=== PATIENT | female | born 1955 | race Caucasian/White ===

== ENCOUNTER 2021-02-22 11:59 | Observation (INO) | payer OTHER ==
[2021-02-22 12:56] LABS: Basophils % 1.2 % (0-1.3); Hematocrit 43.3 % (36.0-45.0); RBC Red Blood Cell Count 5.07 M/uL (3.86-4.86)
[2021-02-22 13:00] LABS: Protime INR 1.03
[2021-02-22] MEDS ORDERED: MORPHINE 2 MG/ML SYR ONE (13:07)
[2021-02-22] MEDS ORDERED: ASPIRIN 81 MG CHEWABLE TABLET ONE (13:07)
[2021-02-22] MEDS ORDERED: HYDRALAZINE HCL 10 MG TABLET ONE (13:07)
[2021-02-22] MEDS ORDERED: FAMOTIDINE 20 MG/2 ML VIAL IV ONE (13:08)
[2021-02-22] MEDS ORDERED: ONDANSETRON 4 MG/2 ML VIAL ONE (13:08)
[2021-02-22] MEDS ORDERED: HYDRALAZINE HCL 20 MG/ML VIAL ONE (13:08)
[2021-02-22 13:10] LABS: Urine Blood Trace-intact (Negative); Urine Glucose Negative (Negative); Urine Protein Negative (Negative); Urine Specific Gravity 1.025 (1.005-1.030); Urine pH 6.5 (5.0-7.0)
[2021-02-22 13:18] LABS: ALT/SGPT 34 U/L (12-78); AST/SGOT 23 U/L (15-37); Albumin 3.6 g/dL (3.4-5.0); Alkaline Phosphatase 72 U/L (45-117); BUN Blood Urea Nitrogen 10 mg/dL (7-18); Bicarbonate 29 mmol/L (21-32); Bilirubin Direct 0.1 mg/dL (0-0.2); Bilirubin Total 0.6 mg/dL (0.2-1.0); Glucose Level 103 mg/dL (74-106); Lipase 107 U/L (73-393); NT PRO-BNP 173 pg/mL (<125); Potassium 3.8 mmol/L (3.5-5.1); Protein, Total 7.8 g/dL (6.4-8.2); Sodium Level 138 mmol/L (136-145); Troponin (Emerg Dept Use Only) < 0.02 ng/mL (0.0-0.045)
--- NOTE | 2021-02-22 13:57 | EDPHYS ---
Physician Documentation [facility] Name: Jillian Ramirez Age: 65 yrs Sex: Female : 1955 Arrival Date: 02/22/2021 Time: 12:01 Bed 17 Private MD: [facility] ED Physician Clarence Montoya HPI: 02/22 12:39 This 65 yrs old Female presents to ER via Ambulatory with complaints of Chest nguyễn Pain, Arm Pain, Shortness Of Breath. 12:39 The patient or guardian reports chest pain that is located primarily in the substernal nguyễn area, epigastric area. Onset: 2 day(s) ago. The pain radiates to Associated signs and symptoms: Pertinent positives: lightheadedness, shortness of breath. The chest pain is described as a pressure. Duration: The patient or guardian reports multiple episodes. Severity of pain: At its worst the pain was moderate in the emergency department the pain is unchanged. The patient has not experienced similar symptoms in the past. Historical: - Allergies: 12:09 No Known Allergies; aa5 - PMHx: 12:09 Hypertension; Hypothyroidism; aa5 - Immunization history:: Client reports receiving the 2nd dose of the Covid vaccine, Flu vaccine is up to date. - Social history:: Smoking status: Patient/guardian denies using tobacco. ROS: 12:40 Constitutional: Negative for fever, chills, and weight loss, Eyes: Negative for injury, nguyễn pain, redness, and discharge, ENT: Negative for injury, pain, and discharge, Neck: Negative for injury, pain, and swelling, Respiratory: Negative for shortness of breath, cough, wheezing, and pleuritic chest pain, Abdomen/GI: Negative for abdominal pain, nausea, vomiting, diarrhea, and constipation, Back: Negative for injury and pain, : Negative for injury, bleeding, discharge, and swelling, MS/Extremity: Negative for injury and deformity, Skin: Negative for injury, rash, and discoloration, Neuro: Negative for headache, weakness, numbness, tingling, and seizure, Psych: Negative for depression, anxiety, suicide ideation, homicidal ideation, and hallucinations, Allergy/Immunology: Negative for hives, rash, and allergies, Endocrine: Negative for neck swelling, polydipsia, polyuria, polyphagia, and marked weight changes, Hematologic/Lymphatic: Negative for swollen nodes, abnormal bleeding, and unusual bruising. 12:40 Cardiovascular: Positive for chest pain, palpitations. Exam: 12:40 Constitutional: This is a well developed, well nourished patient who is awake, alert, nguyễn and in no acute distress. Head/Face: Normocephalic, atraumatic. Eyes: Pupils equal round and reactive to light, extra-ocular motions intact. Lids and lashes normal. Conjunctiva and sclera are non-icteric and not injected. Cornea within normal limits. Periorbital areas with no swelling, redness, or edema. ENT: Nares patent. No nasal discharge, no septal abnormalities noted. Tympanic membranes are normal and external auditory canals are clear. Oropharynx with no redness, swelling, or masses, exudates, or evidence of obstruction, uvula midline. Mucous membranes moist. Neck: Trachea midline, no thyromegaly or masses palpated, and no cervical lymphadenopathy. Supple, full range of motion without nuchal rigidity, or vertebral point tenderness. No Meningismus. Chest/axilla: Normal chest wall appearance and motion. Nontender with no deformity. No lesions are appreciated. Cardiovascular: Regular rate and rhythm with a normal S1 and S2. No gallops, murmurs, or rubs. Normal PMI, no JVD. No pulse deficits. Respiratory: Lungs have equal breath sounds bilaterally, clear to auscultation and percussion. No rales, rhonchi or wheezes noted. No increased work of breathing, no retractions or nasal flaring. Abdomen/GI: Soft, non-tender, with normal bowel sounds. No distension or tympany. No guarding or rebound. No evidence of tenderness throughout. Back: No spinal tenderness. No costovertebral tenderness. Full range of motion. Skin: Warm, dry with normal turgor. Normal color with no rashes, no lesions, and no evidence of cellulitis. MS/ Extremity: Pulses equal, no cyanosis. Neurovascular intact. Full, normal range of motion. Neuro: Awake and alert, GCS 15, oriented to person, place, time, and situation. Cranial nerves II-XII grossly intact. Motor strength 5/5 in all extremities. Sensory grossly intact. Cerebellar exam normal. Normal gait. Psych: Awake, alert, with orientation to person, place and time. Behavior, mood, and affect are within normal limits. 12:40 Musculoskeletal/extremity: DVT Exam: No signs of deep vein thrombosis. no pain, no swelling, no tenderness, negative Homans' sign noted on exam, no appreciated bluish discoloration, no erythema, no increased warmth. 12:44 ECG was reviewed by the Attending Physician. nguyễn Vital Signs: 12:04 BP 225 / 92; Pulse 61; Resp 18; Temp 98.0(O); Pulse Ox 98% on R/A; Weight 114.31 kg aa5 (R); Height 5 ft. 3 in. (160.02 cm) (R); Pain 3/10; 13:06 BP 181 / 79; Pulse 66; Resp 16; Pulse Ox 98% on R/A; zb 14:30 BP 175 / 74; Pulse 71; Resp 20; Pulse Ox 97% on R/A; zb 15:35 BP 164 / 108; Pulse 56; Resp 16; Pulse Ox 97% on R/A; zb 16:45 BP 157 / 109; Pulse 51; Resp 16; Pulse Ox 98% on R/A; zb 12:04 Body Mass Index 44.64 (114.31 kg, 160.02 cm) aa5 MDM: 12:13 Patient medically screened. [facility] 12:42 Differential diagnosis: abnormal EKG, acute myocardial infarction, coronary artery nguyễn disease chest wall pain, congestive heart failure hiatal hernia, pancreatitis, peptic ulcer disease, pneumonia, pulmonary embolus, stable angina, unstable angina. HEART Score: History: Moderately Suspicious (1), ECG: Non specific repolarization disturbance / LBTB / PM (1), Age: > 45 and < 65 years (1), Risk Factors: > or = 3 Risk factors for atherosclerotic disease (2), [Hypercholesterolemia] [Hypertension] [+ Family HX] [Obesity] Troponin: < or = 1 x Normal Limit (0). The patient was given aspirin in the Emergency Department. The patient's deep vein thrombosis risk score was calculated as follows: Total Score: 0. This patient was found to be at low risk for a deep vein thrombosis by using the Well's assessment criteria. The patient's pulmonary embolism risk score was calculated as follows: Total Score: 0-2 points. This patient was found to be at low risk for a pulmonary embolism by using the Well's assessment criteria. MIROSLAVA Risk Score: 1 - Three or more CAD risk factors, TOTAL SCORE = 1. Data reviewed: vital signs, nurses notes, lab test result(s), EKG, radiologic studies, plain films. Data interpreted: case monitor: rate is 61 beats/min, rhythm is regular, Pulse oximetry: on. Test interpretation: by ED physician or midlevel provider: ECG, plain radiologic studies. Counseling: I had a detailed discussion with the patient and/or guardian regarding: the historical points, exam findings, and any diagnostic results supporting the discharge/admit diagnosis, lab results, radiology results, the need for further work-up and treatment in the hospital. 02/22 12:17 Order name: Basic Metabolic Panel; Complete Time: 13:48 [facility] 02/22 12:17 Order name: CBC with Diff; Complete Time: 13:48 [facility] 02/22 12:17 Order name: LFT's; Complete Time: 13:48 [facility] 02/22 12:17 Order name: Magnesium; Complete Time: 13:48 [facility] 02/22 12:17 Order name: NT PRO-BNP; Complete Time: 13:48 [facility] 02/22 12:17 Order name: PT-INR; Complete Time: 13:48 nguyễn 02/22 12:17 Order name: Troponin (emerg Dept Use Only); Complete Time: 13:48 [facility] 02/22 12:17 Order name: XRAY Chest (1 view); Complete Time: 14:34 [facility] 02/22 12:17 Order name: TSH; Complete Time: 13:48 [facility] 02/22 12:17 Order name: Lipase; Complete Time: 13:48 [facility] 02/22 12:17 Order name: Urine Culture 02/22 13:10 Order name: Urine Dipstick-Ancillary; Complete Time: 13:48 [facility] 02/22 14:02 Order name: SARS-COV-2 RT PCR; Complete Time: 14:34 [facility] 02/22 12:17 Order name: EKG; Complete Time: 12:18 [facility] 02/22 12:17 Order name: Cardiac monitoring; Complete Time: 13:06 [facility] 02/22 12:17 Order name: EKG - Nurse/Tech; Complete Time: 13:06 nguyễn 02/22 12:17 Order name: IV Saline Lock; Complete Time: 13:06 nguyễn 02/22 12:17 Order name: Labs collected and sent; Complete Time: 13:06 [facility] 02/22 12:17 Order name: CT Aorta for Dissection; Complete Time: 14:34 [facility] 02/22 14:40 Order name: CONS Physician Consult [facility] 02/22 12:17 Order name: O2 Per Protocol; Complete Time: 13:06 [facility] 02/22 12:17 Order name: O2 Sat Monitoring; Complete Time: 13:14 [facility] 02/22 12:17 Order name: Urine Dipstick-Ancillary (obtain specimen); Complete Time: 13:06 [facility] EC:44 Rate is 60 beats/min. Rhythm is regular. QRS [place] is Normal. [place] interval is normal. QRS nguyễn interval is normal. QT interval is normal. No Q waves. T waves are Normal. ST Segment is depressed in leads I, aVL, V5, V6. Clinical impression: NSR w/ Non-specific ST/T Changes and No evidence of ischemia. Interpreted by me. Reviewed by me. Administered Medications: 13:03 Drug: HydrALAZINE 25 mg Route: PO; zb 14:00 Follow up: Response: No adverse reaction; Marked relief of symptoms; Blood pressure is zb elevated 13:04 Drug: hydrALAZINE 10 mg Route: IV; Rate: per protocol; Site: right antecubital; zb 15:01 Follow up: Response: No adverse reaction; Blood pressure is lowered; IV Status: zb Completed infusion; IV Intake: 0.5ml 13:05 Drug: Pepcid (famotidine) 20 mg Route: IVP; Site: right antecubital; zb 14:00 Follow up: Response: No adverse reaction zb 13:05 Drug: morphine 2 mg {Note: RASS 0.} Route: IVP; Site: right antecubital; zb 14:00 Follow up: Response: No adverse reaction; No change in condition; Pain is decreased; zb RASS: Alert and Calm (0) 13:05 Drug: Zofran (Ondansetron) 4 mg Route: IVP; Site: right antecubital; zb 14:00 Follow up: Response: No adverse reaction; Marked relief of symptoms zb 13:05 Drug: Aspirin Chewable Tablet 162 mg Route: PO; zb 14:00 Follow up: Response: No adverse reaction zb 14:50 Drug: Lovenox (enoxaparin) 100 mg Route: Sub-Q; Site: right lower abdomen; zb 15:03 Follow up: Response: No adverse reaction zb 14:51 Drug: Lopressor (metoprolol TARTRATE) 50 mg Route: PO; zb 15:34 Follow up: Response: No adverse reaction; Blood pressure is lowered zb 16:52 Drug: Tylenol 1000 mg Route: PO; zb 17:00 Follow up: Response: No adverse reaction zb Disposition: 02/22/21 13:57 Hospitalization ordered by Guillermo Byrd for Observation. Preliminary diagnosis are Chest pain, unspecified, Essential (primary) hypertension, Obesity, unspecified, Dyspnea. - Bed requested for Telemetry/MedSurg (observation). - Status is Observation. zb - Condition is Fair. - Problem is new. - Symptoms have improved. Signatures: Dispatcher [employer] [facility] Clarence Montoya MD MD cha Calderon, Audri, RN RN aa5 Tyrone Madison RN RN ja1 Cecilia Partida RN RN zb Corrections: (The following items were deleted from the chart) 13:19 12:39 CORONAVIRUS+MR.LAB.BRZ ordered. [facility] 15:32 13:57 Hospitalization Ordered by Guillermo Byrd MD for Observation. Preliminary ja1 diagnosis is Chest pain, unspecified; Essential (primary) hypertension; Obesity, unspecified; Dyspnea. Bed requested for Telemetry/MedSurg (observation). Status is Observation. Condition is Fair. Problem is new. Symptoms have improved. [facility] 17:15 15:32 02/22/2021 13:57 Hospitalization Ordered by Guillermo Byrd MD for Observation. zb Preliminary diagnosis is Chest pain, unspecified; Essential (primary) hypertension; Obesity, unspecified; Dyspnea. Bed requested for Telemetry/MedSurg (observation). Status is Observation. Condition is Fair. Problem is new. Symptoms have improved. ja1
--- NOTE | 2021-02-22 13:57 | ER ---
Nurse's Notes [facility] Name: Jillian Ramirez Age: 65 yrs Sex: Female : 1955 Arrival Date: 02/22/2021 Time: 12:01 Bed 17 Private MD: Elroy Valentine Diagnosis: Chest pain, unspecified;Essential (primary) hypertension;Obesity, unspecified;Dyspnea Presentation: 02/22 12:04 Chief complaint: Patient states: Chest pain for the past 2 weeks that is intermittent, aa5 and shortness of breath for the same amount of time that has gotten progressively worse. 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 Coronavirus screen: Client denies travel out of the [place] in the last 14 days. At this time, the client does not indicate any symptoms associated with coronavirus-19. Ebola Screen: Patient denies travel to an Ebola-affected area in the 21 days before illness onset. Initial Sepsis Screen: Does the patient meet any 2 criteria? No. Patient's initial sepsis screen is negative. Does the patient have a suspected source of infection? No. Patient's initial sepsis screen is negative. Risk Assessment: Do you want to hurt yourself or someone else? Patient reports no desire to harm self or others. Onset of symptoms was 2020. 12:04 Method Of Arrival: Ambulatory aa5 12:04 Acuity: JOSSELIN 2 aa5 Triage Assessment: 12:09 General: Appears in no apparent distress. uncomfortable, Behavior is calm, cooperative, aa5 appropriate for age. Pain: Complains of pain in chest Pain currently is 3 out of 10 on a pain scale. Neuro: Level of Consciousness is awake, alert, obeys commands. Cardiovascular: Patient's skin is warm and dry. Respiratory: Airway is patent Respiratory effort is even, unlabored, Respiratory pattern is regular, symmetrical. Historical: - Allergies: 12:09 No Known Allergies; aa5 - PMHx: 12:09 Hypertension; Hypothyroidism; aa5 - Immunization history:: Client reports receiving the 2nd dose of the Covid vaccine, Flu vaccine is up to date. - Social history:: Smoking status: Patient/guardian denies using tobacco. Screenin:13 Abuse screen: Denies threats or abuse. Denies injuries from another. Nutritional zb screening: No deficits noted. Tuberculosis screening: No symptoms or risk factors identified. Fall Risk None identified. Assessment: 12:40 General: Appears in no apparent distress. comfortable, Behavior is calm, cooperative, zb appropriate for age. Pain: Complains of pain in left arm and chest Pain radiates to left arm Pain currently is 2 out of 10 on a pain scale. Pain began a "couple of days". Neuro: Level of Consciousness is awake, alert, obeys commands, Oriented to person, place, time, situation. Cardiovascular: Heart tones S1 S2 Capillary refill < 3 seconds in bilateral fingers Patient's skin is warm and dry. Cardiovascular: Reports chest pain, Denies fatigue, lightheadedness, shortness of breath, Heart tones Rhythm is regular. Respiratory: Airway is patent Respiratory effort is even, unlabored, Respiratory pattern is regular, symmetrical. GI: Derm: Skin is intact, is healthy with good turgor, Skin is dry, Skin is normal, Skin temperature is warm. Musculoskeletal: Circulation, motion, and sensation intact. Range of motion: intact in all extremities. 13:20 Reassessment: Patient appears in no apparent distress at this time. Patient and/or zb family updated on plan of care and expected duration. Pain level reassessed. Patient is alert, oriented x 3, equal unlabored respirations, skin warm/dry/pink. patient resting at bedside no changes at this time. family has arrived for support. 14:00 Reassessment: Patient appears in no apparent distress at this time. Patient and/or zb family updated on plan of care and expected duration. Pain level reassessed. Patient is alert, oriented x 3, equal unlabored respirations, skin warm/dry/pink. hospitalist at bedside discussing care with patient and family. 14:52 Reassessment: plaster machine tender at bedside discussing care with patient. zb 15:36 Reassessment: Patient appears in no apparent distress at this time. Patient and/or zb family updated on plan of care and expected duration. Pain level reassessed. Patient is alert, oriented x 3, equal unlabored respirations, skin warm/dry/pink. no changes at this time. family remains at bedside. patient heart rate in high 50's to 60's. patient asymptomatic. 15:40 Reassessment: unable to give report at this time. zb 16:57 Reassessment: Patient appears in no apparent distress at this time. Patient and/or zb family updated on plan of care and expected duration. Pain level reassessed. Patient is alert, oriented x 3, equal unlabored respirations, skin warm/dry/pink. pt c/o of headache rated 8/10. she also stated she wanted to eat some food. heart rate slightly bradycardic notified ECP. Medication ordered for headache. will continue to monitor. Vital Signs: 12:04 BP 225 / 92; Pulse 61; Resp 18; Temp 98.0(O); Pulse Ox 98% on R/A; Weight 114.31 kg aa5 (R); Height 5 ft. 3 in. (160.02 cm) (R); Pain 3/10; 13:06 BP 181 / 79; Pulse 66; Resp 16; Pulse Ox 98% on R/A; zb 14:30 BP 175 / 74; Pulse 71; Resp 20; Pulse Ox 97% on R/A; zb 15:35 BP 164 / 108; Pulse 56; Resp 16; Pulse Ox 97% on R/A; zb 16:45 BP 157 / 109; Pulse 51; Resp 16; Pulse Ox 98% on R/A; zb 12:04 Body Mass Index 44.64 (114.31 kg, 160.02 cm) aa5 ED Course: 12:01 Patient arrived in ED. as 12:02 Elroy Valentine DO is Private Physician. as 12:09 Triage completed. aa5 12:09 Arm band placed on Patient placed in an exam room. aa5 12:11 Cecilia Partida RN is Primary Nurse. zb 12:13 Clarence Montoya MD is Attending Physician. [facility] 12:54 XRAY Chest (1 view) In Process Unspecified. EDMS 13:13 No provider procedures requiring assistance completed. Inserted saline lock: 20 gauge zb in right antecubital area, using aseptic technique. Blood collected. Patient maintains SpO2 saturation greater than 95% on room air. 13:14 Patient has correct armband on for positive identification. Bed in low position. Call zb light in reach. Side rails up X 1. shelter monitor on. Pulse ox on. NIBP on. Door closed. Noise minimized. Warm blanket given. 13:39 CT Aorta for Dissection In Process Unspecified. EDMS 13:52 Guillermo Byrd MD is Hospitalizing Provider. nguyễn 16:59 Patient admitted, IV remains in place. zb Administered Medications: 13:03 Drug: HydrALAZINE 25 mg Route: PO; zb 14:00 Follow up: Response: No adverse reaction; Marked relief of symptoms; Blood pressure is zb elevated 13:04 Drug: hydrALAZINE 10 mg Route: IV; Rate: per protocol; Site: right antecubital; zb 15:01 Follow up: Response: No adverse reaction; Blood pressure is lowered; IV Status: zb Completed infusion; IV Intake: 0.5ml 13:05 Drug: Pepcid (famotidine) 20 mg Route: IVP; Site: right antecubital; zb 14:00 Follow up: Response: No adverse reaction zb 13:05 Drug: morphine 2 mg {Note: RASS 0.} Route: IVP; Site: right antecubital; zb 14:00 Follow up: Response: No adverse reaction; No change in condition; Pain is decreased; zb RASS: Alert and Calm (0) 13:05 Drug: Zofran (Ondansetron) 4 mg Route: IVP; Site: right antecubital; zb 14:00 Follow up: Response: No adverse reaction; Marked relief of symptoms zb 13:05 Drug: Aspirin Chewable Tablet 162 mg Route: PO; zb 14:00 Follow up: Response: No adverse reaction zb 14:50 Drug: Lovenox (enoxaparin) 100 mg Route: Sub-Q; Site: right lower abdomen; zb 15:03 Follow up: Response: No adverse reaction zb 14:51 Drug: Lopressor (metoprolol TARTRATE) 50 mg Route: PO; zb 15:34 Follow up: Response: No adverse reaction; Blood pressure is lowered zb 16:52 Drug: Tylenol 1000 mg Route: PO; zb 17:00 Follow up: Response: No adverse reaction zb Intake: 15:01 IV: 1ml; Total: 1ml. zb Outcome: 13:57 Decision to Hospitalize by Provider. nguyễn 16:59 Admitted to Med/surg accompanied by tech, via wheelchair, room 230, with chart, Report zb called to LITO ROBLEDO 16:59 Condition: stable 16:59 Instructed on the need for admit, Demonstrated understanding of instructions. 17:15 Patient left the ED. zb Signatures: Dispatcher [employer] EDClarence Hester MD MD cha Martinez, Amelia as Calderon, Audri RN RN aaCecilia Noyola RN RN zb Corrections: (The following items were deleted from the chart) 15:39 15:35 BP 164 / 108; Pulse 52bpm; Resp 16bpm; Pulse Ox 97% RA; zb zb 15:39 15:36 Reassessment: Patient appears in no apparent distress at this time. Patient zb and/or family updated on plan of care and expected duration. Pain level reassessed. Patient is alert, oriented x 3, equal unlabored respirations, skin warm/dry/pink. no changes at this time. family remains at bedside. patient heart slightly bradycardic. notified ECP, patient asymptomatic. zb
--- NOTE | 2021-02-22 14:02 | RAD REPORT ---
EXAM DESCRIPTION: Alex Single View02/22/2021 12:54 pm CLINICAL HISTORY: Chest pain COMPARISON: none FINDINGS: The lungs appear clear of acute infiltrate. The heart is normal size IMPRESSION: No acute abnormalities displayed
--- NOTE | 2021-02-22 14:02 | RAD REPORT ---
EXAM DESCRIPTION: CT - Angio Aorta For Dissection - 02/22/2021 1:38 pm CLINICAL HISTORY: . Chest and abdominal pain COMPARISON: None TECHNIQUE: Computed tomography angiography of the chest, abdomen pelvis were obtained. 100 cc Isovue 370 was administered intravenously. Coronal and sagittal reconstruction were performed. MIP 3D reconstruction was performed All CT scans are performed using dose optimization technique as appropriate and may include automated exposure control or mA/KV adjustment according to patient size. FINDINGS: An aortic dissection is not seen. An aortic aneurysm is not displayed. The celiac, SMA and JIMMY are patent . A lung consolidation is not present. A pericardial effusion is not seen. A pleural effusion is not n oted. Fatty liver. Bilateral renal calculi. No hydronephrosis. The spleen, pancreas and adrenals appear unremarkable No evidence of diverticulitis. Fluid in a few loops borderline dilated small bowel IMPRESSION: Negative for an aortic dissection. Fluid in a few borderline dilated loops of small bowel may indicate an enteritis
--- NOTE | 2021-02-22 14:46 | P.HP ---
Certification for Inpatient Patient admitted to: Observation With expected LOS: <2 Midnights Practitioner: I am a practitioner with admitting privileges, knowledge of patient current condition, hospital course, and medical plan of care. Services: Services provided to patient in accordance with Admission requirements found in Title 42 Section 412.3 of the Code of Federal Regulations Patient History Date of Service: 02/22/21 Reason for admission: Chest pain, Hypertensive urgency History of Present Illness: 65yo F PMH: Hypothyroid, HTN, morbid obesity Presents to ED due to severe substernal chest pain/tightness, associated with b/l arm pains, blurry vision. She reports her blood pressure was 220/114. Episode lasted ~4-5 hours - resolved in the ER. She reports having controlled HTN until the last few days. She has been taking her medications as prescribed. She has been experience a "stomach knot" (pointing to epigastrium) over the last month. She was seen by PCP and then GI yesterday in the office. She reports GI told her this is unlikely to be her stomach and may be due to her heart and recommended further cardiac workup. She reports both parents have HTN, mother had [place] and underwent CABG in her 60s. In the ED, labs were rather unremarkable, EKG without ischemia, troponin negative. CXR: without acute process. CT chest/abd/pelvis: negative for aortic dissection, fluid in a few borderline dilated loops of small bowel may indicate an enteritis. BP on arrival: 225/92, HR: 61. Received 25mg Hydralazine PO, 10mg IV Hydralazine, pepcid, morphine, aspirin. BP improved to 181/79 - Past Medical/Surgical History Diabetic: No -: HTN -: Hypothyroid -: Hysterectomy - Family History Mother -: Heart disease - Social History Smoking Status: Never smoker Alcohol use: No CD- Drugs: No Place of Residence: Home Review of Systems 10-point ROS is otherwise unremarkable Physical Examination - Physical Exam General: Alert, Oriented x3, Mild distress HEENT: Mucous membr. moist/pink, Sclerae nonicteric Respiratory: Clear to auscultation bilaterally, Other (appears somewhat labored breathing ) Cardiovascular: No edema, Regular rate/rhythm, Normal S1 S2, No murmurs Capillary refill: <2 Seconds Gastrointestinal: Soft and benign, Non-distended, Tenderness (mild in epigas trium) Musculoskeletal: No contractures, No tenderness Integumentary: No rashes, No breakdown Neurological: Normal speech, Normal strength at 5/5 x4 extr, Cranial nerves 3-12 intact, Normal affect - Studies Laboratory Data (last 24 hrs) 02/22/21 12:41: PT 11.8, INR 1.03 02/22/21 12:41: WBC 6.40, Hgb 14.1, Hct 43.3, Plt Count 203 02/22/21 12:41: Sodium 138, Potassium 3.8, BUN 10, Creatinine 0.92, Glucose 103, Magnesium 2.0, Total Bilirubin 0.6, AST 23, ALT 34, Alkaline Phosphatase 72, Lipase 107 Assessment and Plan - Advance Directives Does patient have a Living Will: No Does patient have a Durable POA for Healthcare: No Physician Review Additional Text: Problem List Chest Pain Hypertensive Urgency, h/o HTN Hypothyroidism Morbid Obesity -initial trop neg, will trend -pt with risk factors for cardiac etiology -cardiology consulted -aspiring, BB, statin, lovenox -CT negative for thoracic process, possible enteritis seen may explain pts epigastric discomfort -obtain home medications - she does not recall which exactly 2 medications she is on -start lisinopril, restart/uptitrate home meds, IV hydralazine PRN, do not want to lower BP too much/fast -hypertensive symptoms have resolved -check thyroid studies VTE: lovenox Code: full Dispo: anticipate dc home in 24-48hrs Time Spent Managing Pts Care (In Minutes): 60
[2021-02-22] MEDS ORDERED: ENOXAPARIN 100 MG/ML SYR SQ ONE (15:06)
[2021-02-22] MEDS ORDERED: METOPROLOL TAR 50 MG TAB ONE (15:06)
[2021-02-22] MEDS ORDERED: lisinopriL 20 MG TAB PO ONE (15:46)
[2021-02-22] MEDS ORDERED: ACETAMINOPHEN 500 MG TAB ONE (17:10)
[2021-02-22 17:59] VITALS: BMI 43.9
[2021-02-22] MEDS ORDERED: ACETAMINOPHEN 500 MG TAB PO PRN (18:07)
[2021-02-22] MEDS ORDERED: HYDRALAZINE HCL 20 MG/ML VIAL IV PRN (18:07)
[2021-02-22] MEDS: METOPROLOL TAR 25 MG TAB PO SCH (18:07)
[2021-02-22] MEDS ORDERED: ONDANSETRON 4 MG/2 ML VIAL IV PRN (18:07)
[2021-02-22 20:04] LABS: Troponin I < 0.02 ng/mL (0.0-0.045)
--- NOTE | 2021-02-22 20:23 | CON ---
Date of Consultation: 02/22/2021 Reason For Consultation: Chest pain. History Of Present Illness: The 65-year-old female, obese, history of hypertension. She had a very high blood pressure earlier this morning at 226 systolic and started having chest pain. It is sterna l that goes to the jaw. Patient has known history of hypertension. No other cardiac issue. No exer tional chest pain. Past Medical History: Hypertension. Medications: Refer to reconciliation sheet for detailed list. Allergies: NO KNOWN DRUG ALLERGIES. Family History: No mention of coronary artery disease or cancer. Social History: She does not smoke or drink. Does not use any drugs. Review of Systems: All systems reviewed and they were negative except for what is mentioned in HPI. Physical Examination: Vital Signs: Reviewed. Head and Neck: Pupils are equal, reactive to light. Intact eye movements. No JVD. No cervical lym phadenopathy. Neck supple. Thyroid is not enlarged. Lungs: Clear to auscultation bilaterally. No rhonchi, rales, or crackles. No accessory muscle use. Heart: Regular rate and rhythm. No extra sounds. Abdomen: Soft, nontender. Bowel sounds positive. No organomegaly. No masses or hernia. No rigidi ty or rebound. Extremities: No edema, clubbing, cyanosis. Intact pulses. Skin: No rashes. Neurologic: Alert, awake, oriented x3. No focal deficits appreciated. Investigations: EKG without acute specific abnormalities. Troponin less than 0.02. Creatinine 0.92 . Hemoglobin is 14.1. Assessment And Recommendation: Chest pain with a very high blood pressure. CT ruled out dissection. Recommend observation, serial sets of cardiac enzymes, and if she remains chest pain free, she can be worked up as an outpatient with a stress test and an echo. Thank you for the consult. /BRADLEY Voice ID: [id number] Report ID: [id number]
[2021-02-22] MEDS ORDERED: ATORVASTATIN 20 MG TAB PO SCH (21:00)
[2021-02-22 22:56] LABS: Urine Appearance CLEAR (Clear); Urine Bilirubin NEGATIVE (Negataive); Urine Blood NEGATIVE (Negative); Urine Color YELLOW (Yellow); Urine Glucose NEGATIVE (Negative); Urine Protein NEGATIVE (Negative); Urine Specific Gravity >=1.030 (1.005-1.030)
[2021-02-22 23:06] LABS: Urine Microscopic Reflex NO UMIC
[2021-02-23] MEDS: METOPROLOL TAR 25 MG TAB PO SCH (05:59)
[2021-02-23 06:55] LABS: Absolute Lymphocytes (CBC) 1.6 K/uL (0.7-4.9); Basophils % 1.2 % (0-1.3); Hematocrit 41.6 % (36.0-45.0); Lymphocytes % 31.1 % (15.3-44.8); MPV 7.9 fL (7.6-11.3); RBC Red Blood Cell Count 4.84 M/uL (3.86-4.86)
[2021-02-23 06:59] LABS: Albumin 3.3 g/dL (3.4-5.0); Bilirubin Total 0.6 mg/dL (0.2-1.0)
[2021-02-23] MEDS ORDERED: LEVOTHYROXINE SOD 0.1 MG TAB PO SCH (07:30)
[2021-02-23] MEDS ORDERED: PANTOPRAZOLE 40MG TABLET PO SCH (07:30)
[2021-02-23] MEDS ORDERED: carvediloL 6.25 MG TAB PO SCH (08:00)
[2021-02-23] MEDS ORDERED: lisinopriL 20 MG TAB PO SCH ×2 (09:00)
[2021-02-23] MEDS ORDERED: SERTRALINE HCL 50 MG TAB PO SCH (09:00)
[2021-02-23] MEDS ORDERED: HOME MED 1 EA UNK (Pravastatin [Pravachol*] 40 MG/TAB Tab) PO SCH (09:00)
[2021-02-23] MEDS ORDERED: ENOXAPARIN 40 MG/0.4 ML SQ SCH (09:00)
[2021-02-23] MEDS ORDERED: HOME MED 1 EA UNK (Omeprazole [Prilosec] 40 MG Capsule.Dr) PO SCH (09:00)
[2021-02-23] MEDS ORDERED: ASPIRIN EC 81 MG TAB PO SCH (09:00)
[2021-02-23 09:41] VITALS: O2SAT 96
[2021-02-23] MEDS ORDERED: METRONIDAZOLE 500mg IVPB 500 MG/100 ML BAG IV SCH (10:00)
[2021-02-23] MEDS ORDERED: CIPROFLOXACIN 400mg IV 400 MG/200 ML BAG IV SCH (10:00)
[2021-02-23] MEDS: SUCRALFATE 1GM/10ML UCUP PO SCH ×2 (12:42)
[2021-02-23] MEDS ORDERED: PNEUMOCOCCAL VACCINE 0.5 ML IMVAC ONE (14:00)
--- NOTE | 2021-02-23 14:48 | P.DS ---
Admission Date: 02/22/21 Discharge Date: 02/23/21 Disposition: ROUTINE DISCHARGE Discharge Condition: GOOD Reason for Admission: Chest pain, Hypertensive urgency Consultations: Cardiology - Dr. Craven Procedures: CXR (02/22): The lungs appear clear of acute infiltrate. The heart is normal size CT Dissection (02/22): An aortic dissection is not seen. An aortic aneurysm is not displayed. The celiac, SMA and JIMMY are patent . A lung consolidation is not present. A pericardial effusion is not seen. A pleural effusion is not noted. Fatty liver. Bilateral renal calculi. No hydronephrosis. The spleen, pancreas and adrenals appear unremarkable No evidence of diverticulitis. Fluid in a few loops borderline dilated small bowel may indicate an enteritis. Problem List Chest Pain GERD Epigastric pain, likely secondary to gastritis vs gastric ulcer Hypertensive Urgency, h/o HTN Hypothyroidism Morbid Obesity Brief History of Present Illness: 65yo F PMH: Hypothyroid, HTN, morbid obesity Presents to ED due to severe substernal chest pain/tightness, associated with b/l arm pains, blurry vision. She reports her blood pressure was 220/114. Epis ode lasted ~4-5 hours - resolved in the ER. She reports having controlled HTN until the last few days. She has been taking her medications as prescribed. She has been experience a "stomach knot" (pointing to epigastrium) over the last month. She was seen by PCP and then GI yesterday in the office. She reports GI told her this is unlikely to be her stomach and may be due to her heart and recommended further cardiac workup. She reports both parents have HTN, mother had [place] and underwent CABG in her 60s. In the ED, labs were rather unremarkable, EKG without ischemia, troponin negative. CXR: without acute process. CT chest/abd/pelvis: negative for aortic dissection, fluid in a few borderline dilated loops of small bowel may indicate an enteritis. BP on arrival: 225/92, HR: 61. Received 25mg Hydralazine PO, 10mg IV Hydralazine, pepcid, morphine, aspirin. BP improved to 181/79 Hospital Course: Patient was restarted on her home regimen. She was noted to be hypertensive 160-180/80-90 when she was having abdominal pain, and down to 130-140/80 otherwise. She remained afebrile and did not have leukocytosis. She did receive one dose of Cipro & Flagyl however this was not continued on discharge. Her epigastric pain improved with Carafate. She had improvement in her symptoms and vitals. She was discharged home to take Protonix BID and Carafate. She recently saw GI this last week. She will need cardiac clearance. Her chest pain was evaluated and had a negative EKG and Troponins. She will follow up with Cardiology to undergo outpatient stress test. She will continue with BP diary and follow up with PCP and Cardiology. Vital Signs/Physical Exam: Physical Exam General: Alert, NAD, morbidly obese HEENT: Mucous membr. moist/pink, Sclerae nonicteric Respiratory: Clear to auscultation bilaterally, nonlabored on room air Cardiovascular: No edema, Regular rate/rhythm, Normal S1 S2 Gastrointestinal: Soft and benign, Non-distended, mild tenderness in epigastrium Integumentary: No rashes, No breakdown Neurological: Normal speech, Normal strength at 5/5 x4 extr, Normal affect Temp Pulse Resp BP Pulse Ox 98.7 F 47 L 16 144/65 H 96 02/23/21 12:00 02/23/21 12:00 02/23/21 12:00 02/23/21 12:00 02/23/21 12:00 Laboratory Data at Discharge: WBC 5.30 K/uL (4.3-10.9) D 02/23/21 06:25 Hgb 13.6 g/dL (12.0-15.0) 02/23/21 06:25 Hct 41.6 % (36.0-45.0) 02/23/21 06:25 Plt Count 195 K/uL (152-406) 02/23/21 06:25 PT 11.8 SECONDS (9.5-12.5) 02/22/21 12:41 INR 1.03 02/22/21 12:41 Sodium 139 mmol/L (136-145) 02/23/21 06:25 Potassium 4.0 mmol/L (3.5-5.1) 02/23/21 06:25 BUN 12 mg/dL (7-18) 02/23/21 06:25 Creatinine 0.87 mg/dL (0.55-1.3) 02/23/21 06:25 Glucose 99 mg/dL (74-106) 02/23/21 06:25 Magnesium 2.0 mg/dL (1.8-2.4) 02/22/21 12:41 Total Bilirubin 0.6 mg/dL (0.2-1.0) 02/23/21 06:25 AST 19 U/L (15-37) 02/23/21 06:25 ALT 30 U/L (12-78) 02/23/21 06:25 Alkaline Phosphatase 67 U/L (45-117) 02/23/21 06:25 Troponin I < 0.02 ng/mL (0.0-0.045) 02/23/21 01:06 Lipase 107 U/L (73-393) 02/22/21 12:41 Home Medications: Levothyroxine Sodium [Levothyroxine] 1 tab PO SEECOM 02/22/21 Pravastatin [Pravachol*] 1 tab PO DAILY 02/22/21 Sertraline [Zoloft*] 1 tab PO DAILY 02/22/21 carvediloL [Carvedilol] 1 tab PO BID 02/22/21 lisinopriL [Lisinopril] 40 mg PO DAILY 02/22/21 Pantoprazole [Protonix Tab*] 40 mg PO BID 30 Days #60 tab 02/23/21 Sucralfate [Carafate] 1 gm PO AC 30 Days #90 tablet 02/23/21 New Medications: Sucralfate [Carafate] 1 gm PO AC 30 Days #90 tablet Pantoprazole [Protonix Tab*] 40 mg PO BID 30 Days #60 tab Physician Discharge Instructions: Your chest pain was evaluated by EKG and troponin (cardiac enzyme) which were normal and unlikely that your heart was the cause. Cardiology, Dr. Craven, evaluated you as well, and recommended follow up in the office in 1-2 weeks to have an outpatient stress test and echocardiogram performed. Your blood pressure was noted to be very high with your systolic blood pressure (top number) up to 200 when you first came to the ER. As we observed you, it seemed to be very high when you were having abdominal pain. At times when you did not have pain your blood pressure was 130-140/80 - on your home regimen, not needing any extra. Please continue your current medications for your blood pressure. Keep a blood pressure diary and follow up with your PCP in 3-5 days. Your abdominal pain improved with carafate, and you are discharged with pantoprazole 40mg twice a day (antacid) and carafate - take 1 tablet before each meal. These medications will help your abdominal pain / heartburn. Your abdominal piedra is likely be due to inflammation of your stomach and/or stomach ulcer. You had a CT scan of your chest/abdomen/pelvis which was only notable for some mild signs of inflammation around your small intestine which could be enteritis. You received 1 dose of antibiotics, however you never had a fever or elevated white blood cell count, or other signs of bacterial infection. Please follow up with your GI doctor in the next few weeks, you would benefit from an EGD and colonoscopy. Diet: AHA (bland, no soda) Activity: Ad rachel Followup: Elroy Valentine, DO [Primary Care Provider] - (follow up in 3-5 days, call to schedule an appointment ) Rogers Craven MD [ACTIVE - CAN ADMIT] - 1-2 Weeks (toggler- call to schedule an appointment ) Time spent managing pt's care (in minutes): 35
[2021-02-23 16:23] VITALS: BP 179/72; TEMP 99.3
== END 2021-02-23 15:45 | disposition home or self-care (01) ==
LOC: ER 11:59 → ERHOLD 14:39 → 2ND 17:01
PROVIDERS: ADMIT Hospitalist; ATTEND Hospitalist
DX: R07.9 Chest pain, unspecified (principal); I16.0 Hypertensive urgency; K21.9 Gastro-esophageal reflux disease without esophagitis; Z20.822 Contact with and (suspected) exposure to COVID-19; R94.31 Abnormal electrocardiogram [ECG] [EKG]; E03.9 Hypothyroidism, unspecified; E66.01 Morbid (severe) obesity due to excess calories; I10 Essential (primary) hypertension; Z68.41 Body mass index [BMI] 40.0-44.9, adult
CPT/HCPCS: 36415; 71045; 71275; 74175; 80048; 80053; 80076; 81003; 83631; 83690; 83735; 83880; 84439; 84443; 84484; 85025; 85610; 87045; 87046; 87086; 87088; 87177; 87209; 89055; 93005; 94760; 96365; 96366; 96372; 96375; 99285; G0378; J0360; J0744; J1650; J2270; J2405; Q9967; U0003